=== PATIENT | female | born 1990 | race Caucasian/White ===

== ENCOUNTER 2020-07-27 09:07 | Emergency (ER) | payer OTHER, MEDICAID, SELFPAY ==
[2020-07-27] VITALS (9 sets, daily range): BP systolic 138–164; BP diastolic 75–95; PULSE 77–114; RESP 20; TEMP 36.7; O2SAT 94–100; BMI 20.2
[2020-07-27 09:50] LABS: Add Manual Diff / Slide Review NO; Basophils Absolute Auto 100 /uL (0-100); Basophils Percent Auto 1.1 % (0-2); Eosinophils Absolute Auto 200 /uL (0-450); Eosinophils Percent Auto 1.8 % (2-4); Hemoglobin 13.5 g/dL (12.0-16.0); Lymphocytes Absolute Auto 3300 /uL (1100-4500); Lymphocytes Percent Auto 32.4 % (25-40); Mean Corpuscular HGB Conc 33.7 % (30-36); Mean Corpuscular Hemoglobin 30.2 PG (26-34); Mean Corpuscular Volume 89.7 fL (80-100); Monocytes Absolute Auto 500 /uL (0-900); Neutrophils Absolute Auto 6100 /uL (1500-7000); Neutrophils Percent Auto 59.7 % (50-75); Platelet Count 283 X10^3/uL (150-400); Red Blood Cell Count 4.46 X10^6/uL (4.0-5.2); Red Cell Distribution Width 13.6 % (11.6-14.8); White Blood Cell Count 10.2 X10^3/uL (4.5-11.0)
--- NOTE | 2020-07-27 09:56 | ED.ABDPAIN ---
HPI - Abdominal Pain General Chief Complaint: Abdominal Pain Stated Complaint: Sharp pain in stomach and back Time Seen by Provider: 07/27/20 09:35 Source: patient Mode of arrival: Ambulatory Limitations: no limitations History of Present Illness HPI narrative: The patient complains of left lateral and left lower quadrant pain for about the last week. Pain has been significantly more severe since last night. She has no associated fever. She has no nausea vomiting. She describes normal appetite and normal bowel movements. She has dysuria hematuria. She has a history of ovarian cyst. She has no vaginal discharge. Her LMP was last month, she does not suspect herself of being . She has no associated back pain. She had no URI symptoms, headache, sore throat, or cough. She has no fever or chills. Related Data Previous Rx's Medication Instructions Recorded ciprofloxacin HCl 500 mg PO BID 7 Days #14 tab 07/27/20 metronidazole [Flagyl] 500 mg PO BID 7 Days #14 tab 07/27/20 tramadol 50 mg PO Q6-8H PRN #10 tab 07/27/20 Allergies Allergy/AdvReac Type Severity Reaction Status Date / Time Penicillins Allergy Severe Anaphylaxis Verified 07/27/20 09:20 Review of Systems Review of Systems ROS Unobtainable: All systems reviewed & are unremarkable except as noted in HPI and below Constitutional Constitutional: Denies chills, Denies fever(s), Denies lethargy and Denies weakness ENT Ears, Nose, Mouth, and Throat: Denies dizziness, Denies neck pain, Denies sore throat and Denies throat swelling Cardiovascular Cardiovascular: Denies chest pain, Denies dyspnea and Denies orthopnea Respiratory Respiratory: Denies cough, Denies dyspnea and Denies wheezing Gastrointestinal Gastrointestinal: Reports abdominal pain (LLQ), Denies change in bowel habits, Denies diarrhea, Denies nausea and Denies vomiting Genitourinary Genitourinary: Denies dysuria Genitourinary: Denies dysuria Musculoskeletal Musculoskeletal: Denies back pain, Denies myalgias and Denies neck pain Integumentary/Breasts Skin/Breast: Denies pruritus, Denies erythema, Denies rash and Denies wounds Neurologic Neurologic: Denies confusion, Denies dizziness and Denies weakness Psychiatric Psychiatric: Denies confusion Hematologic/Lymphatic Hematologic/Lymphatic: Denies easy bruising Allergic/Immunologic Allergic/Immunologic: Denies throat swelling and Denies wheezing Patient History Medical History (Updated 07/27/20 @ 14:52 by Palomo Yanes MD) No active medical problems (Acute) Surgical History (Updated 07/27/20 @ 14:59 by Lauri Giang) No history of previous surgery (Acute) Social History Smoking Status: Current every day smoker Smoking Status: Current every day smoker tobacco type: cigarettes alcohol intake frequency: other Substance Use Type: marijuana Exam Initial Vital Signs Initial Vital Signs: Vital Signs Temperature 98.0 F 07/27/20 09:14 Pulse Rate 114 H 07/27/20 09:14 Respiratory Rate 20 07/27/20 09:14 Blood Pressure 149/81 H 07/27/20 09:14 Pulse Oximetry 100 07/27/20 09:14 Const General: cooperative and well developed Nutritional Appearance: well nourished HENMT Mouth: oral mucosae normal Throat: posterior oropharynx normal Eyes Other: No icterus Resp Effort & Inspection: normal respiratory effort and able to speak in complete sentences Auscultation: clear to auscultation bilaterally, no rales, no rhonchi and no wheezes Cardio Rate: regular rate Rhythm: regular rhythm Heart Sounds: S1 normal, S2 normal, no click, no gallops, no murmurs and no rubs Pulses: normal peripheral pulses GI Other: Tenderness in the LLQ with guarding but no rebound. No distention. No masses. Normal bowel sounds. Back/Spine/Pelvis Back: No CVA tenderness Skin General: no rashes or lesions noted, No jaundice and No petechiae Neuro General: patient alert, patient oriented x3, gait normal and no focal motor deficits Speech: speech normal Extrem General: full ROM, no clubbing, cyanosis or edema, no pedal edema and no calf tenderness Psych Appearance: grossly normal Mental Status: mental status grossly normal Course Course Course Narrative: The patient's CT revealed suspicion for an enteritis, but also raise suspicion of ovarian disease. A pelvic ultrasound revealed normal pelvic organs. There is normal blood flow to both ovaries. She was started on antibiotics prior to discharge, Cipro and Flagyl. She has appoint with her doctor September. If symptoms persist she may require colonoscopy. In the meantime, if symptoms escalate she should return the ER. Orders Ordered: ED Orders 07/27/20 09:40 Complete Blood Count AUTO DIFF Stat Comprehensive Metabolic Panel Stat Lipase Stat Partial Thromboplastin Time Stat Prothrombin Time INR Stat 07/27/20 10:23 Urine Microscopic Stat 07/27/20 10:45 CT abdomen pelvis w con Stat 07/27/20 12:50 US pelvic complete Stat Discontinued Medications Hydromorphone HCl (Dilaudid) 1 mg IV NOW ONE Stop: 07/27/20 12:51 Last Admin: 07/27/20 13:01 Dose: 1 mg Documented by: ANDREI Sodium Chloride (Normal Saline 0.9%) 500 mls @ 1,000 mls/hr IV BOLUS ONE Stop: 07/27/20 10:24 Last Infusion: 07/27/20 11:38 Dose: 0 mls/hr Documented by: Admin: 07/27/20 10:21 Dose: 1,000 mls/hr Documented by: VANCE Ketorolac Tromethamine (Toradol) 30 mg IV NOW ONE Stop: 07/27/20 09:56 Last Admin: 07/27/20 10:20 Dose: 30 mg Documented by: VANCE Levofloxacin (Levaquin) 500 mg PO NOW ONE Stop: 07/27/20 14:42 Last Admin: 07/27/20 14:54 Dose: 500 mg Documented by: ANDREI Metronidazole (Metronidazole) 500 mg PO NOW ONE Stop: 07/27/20 14:42 Last Admin: 07/27/20 14:53 Dose: 500 mg Documented by: ANDREI Vital Signs Vital signs: Vital Signs - 8 hr 07/27/20 09:14 07/27/20 10:19 07/27/20 12:45 Temperature 98.0 F Pulse Rate 114 H 82 92 H Respiratory Rate 20 Blood Pressure 149/81 H 149/86 H 152/94 H Pulse Oximetry 100 94 100 07/27/20 13:00 07/27/20 13:30 07/27/20 13:31 Temperature Pulse Rate 102 H 90 Respiratory Rate Blood Pressure 140/75 164/95 H Pulse Oximetry 100 94 100 07/27/20 14:00 07/27/20 14:30 07/27/20 14:54 Temperature Pulse Rate 82 77 91 H Respiratory Rate Blood Pressure 140/83 140/91 H 138/85 Pulse Oximetry 100 100 95 MDM - Abdominal Pain Lab Data Result diagrams: 07/27/20 09:40 07/27/20 09:40 Labs: Lab Results 07/27/20 07/27/20 07/27/20 Range/Units 09:40 09:40 09:40 WBC 10.2 (4.5-11.0) X10^3/uL RBC 4.46 (4.0-5.2) X10^6/uL Hgb 13.5 (12.0-16.0) g/dL Hct 40.0 (36-46) % MCV 89.7 (80-100) fL MCH 30.2 (26-34) PG MCHC 33.7 (30-36) % RDW 13.6 (11.6-14.8) % Plt Count 283 (150-400) X10^3/uL Neut % (Auto) 59.7 (50-75) % Lymph % (Auto) 32.4 (25-40) % [place] % (Auto) 5.0 (3-14) % Eos % (Auto) 1.8 L (2-4) % Baso % (Auto) 1.1 (0-2) % Neut # (Auto) 6100 (6515-9313) /uL Lymph # (Auto) 3300 (4115-8181) /uL [place] # (Auto) 500 (0-900) /uL Eos # (Auto) 200 (0-450) /uL Baso # (Auto) 100 (0-100) /uL PT 11.3 (10.1-12.7) SECONDS INR 1.0 (0.9-1.3) APTT 32 (26.4-36.2) SECONDS Sodium 138 (137-145) mmol/L Potassium 3.8 (3.4-5.1) mmol/L Chloride 106 (98-107) mmol/L Carbon Dioxide 25 (22-32) mmol/L BUN 15 (7-17) mg/dL Creatinine 0.65 (0.52-1.04) mg/dL Estimated GFR > 60.0 (>60) mL/min BUN/Creatinine Ratio 23.1 H (6-22) Glucose 101 H (70-100) mg/dL Calcium 8.9 (8.4-10.2) mg/dL Total Bilirubin 0.3 (0.2-1.3) mg/dL AST 23 (14-36) IU/L ALT 27 (<35) IU/L Alkaline Phosphatase 62 (38-126) U/L Total Protein 6.7 (6.3-8.2) g/dL Albumin 4.0 (3.5-5.0) g/dL Globulin 2.7 (1.7-4.1) g/dL Albumin/Globulin Ratio 1.5 (1.0-2.8) Lipase 74 (23-300) U/L Urine RBC (0-5/HPF) Urine WBC (0-5/HPF) Ur Squamous Epith Cells (0-5/HPF) Urine Bacteria (None) Ur Culture Indicated? 07/27/20 Range/Units 10:23 WBC (4.5-11.0) X10^3/uL RBC (4.0-5.2) X10^6/uL Hgb (12.0-16.0) g/dL Hct (36-46) % MCV (80-100) fL MCH (26-34) PG MCHC (30-36) % RDW (11.6-14.8) % Plt Count (150-400) X10^3/uL Neut % (Auto) (50-75) % Lymph % (Auto) (25-40) % [place] % (Auto) (3-14) % Eos % (Auto) (2-4) % Baso % (Auto) (0-2) % Neut # (Auto) (2424-2738) /uL Lymph # (Auto) (2065-4604) /uL [place] # (Auto) (0-900) /uL Eos # (Auto) (0-450) /uL Baso # (Auto) (0-100) /uL PT (10.1-12.7) SECONDS INR (0.9-1.3) APTT (26.4-36.2) SECONDS Sodium (137-145) mmol/L Potassium (3.4-5.1) mmol/L Chloride (98-107) mmol/L Carbon Dioxide (22-32) mmol/L BUN (7-17) mg/dL Creatinine (0.52-1.04) mg/dL Estimated GFR (>60) mL/min BUN/Creatinine Ratio (6-22) Glucose (70-100) mg/dL Calcium (8.4-10.2) mg/dL Total Bilirubin (0.2-1.3) mg/dL AST (14-36) IU/L ALT (<35) IU/L Alkaline Phosphatase (38-126) U/L Total Protein (6.3-8.2) g/dL Albumin (3.5-5.0) g/dL Globulin (1.7-4.1) g/dL Albumin/Globulin Ratio (1.0-2.8) Lipase (23-300) U/L Urine RBC 0-1/hpf (0-5/HPF) Urine WBC 0-1/hpf (0-5/HPF) Ur Squamous Epith Cells None seen (0-5/HPF) Urine Bacteria None seen (None) Ur Culture Indicated? Cult not indicated Point of care testing: Point of Care Testing Test Results Negative Urine Dip Bedside Urine Glucose Negative Bedside Urine Bilirubin - Negative Bedside Urine Ketone - Negative Urine Specific [place] 1.015 Bedside Urine Occult Blood - Negative Bedside Urine pH 7.0 Bedside Urine Protein - Negative Bedside Urine Urobilinogen - Negative Bedside Urine Nitrite - Negative Bedside Urine Leukocytes +/- [address] scan - abdomen/pelvis: Radiologist's Impression: 118 Palomo Yanes MD Find Patient Imaging - Lora José 29 F 1990 ACTIVITY DATE EXAM STATUS AUTHOR 07/27/20 10:45 Signed Call,[place] [phone] CT Scan Report Signed Patient: Lora José DMR#: [id number] : 1990Acct:[id number] Age/Sex: 29 / FDate of Service: 07/27/20 Loc: ED Accession Number: [id number] Procedure: CT abdomen pelvis w con Ordering Provider: Palomo Yanes MD PROCEDURE: CT ABDOMEN PELVIS W CON INDICATIONS: Left lower quadrant pain TECHNIQUE: After the administration of oral and intravenous contrast, 5 mm thick sections acquired from the diaphragms to the symphysis. 5 mm thick coronal and sagittal reformats were performed. For radiation dose reduction, the following was used: automated exposure control, adjustment of mA and/or kV according to patient size. COMPARISON: None. FINDINGS: Image quality: Excellent. ABDOMEN: Lung bases: Lung bases are clear. Heart size is normal. Solid organs: Liver is normal in size and enhancement. Gallbladder is contracted. Biliary system is non-dilated. Pancreas enhances normally. Spleen is normal in size and enhancement. No adrenal nodules. Kidneys are normal in size and enhancement, without hydronephrosis. Peritoneum and bowel: Stomach is distended. No small bowel obstruction. Matted appearance of the small bowel in the left abdomen. Question of areas of small bowel wall thickening. No diverticulosis or diverticulitis. Normal caliber of the appendix. No free fluid or air. Nodes and vessels: No retroperitoneal or mesenteric adenopathy. Aorta and inferior vena cava are normal in caliber. Miscellaneous: No ventral hernias. PELVIS: Genitourinary: Bladder wall thickness is normal. Prior tubal ligation. Left corpus luteum or crenulated cyst measuring 1.2 cm, (2/64). Possible additional left ovarian cyst versus free fluid. Miscellaneous: No inguinal hernias or adenopathy. Bones: No suspicious bony lesions. No vertebral body compression fractures. IMPRESSION: 1. Left ovarian crenulated cyst or corpus luteum. This could be a source of left pelvic pain. -if clinically indicated this could be further evaluated with pelvic ultrasound. 2. Matted appearance of the small bowel in the left abdomen with possible wall thickening. This could be due to enteritis. No small bowel obstruction. 3. No hydronephrosis. Dictated by: Pola Murphy M.D. on 07/27/2020 at 12:09 Approved by: Pola Murphy M.D. on 07/27/2020 at 12:16 US Pelvis: Radiologist's Impression: [place] [address] Ultrasound Report Signed Patient: Lora José [facility]#: [id number] : 1990Acct:[id number] Age/Sex: 29 / FDate of Service: 07/27/20 Loc: ED Accession Number: [id number] Procedure: US pelvic complete Ordering Provider: Palomo Yanes MD PROCEDURE: US PELVIC COMPLETE INDICATIONS: LLQ pain TECHNIQUE: Real-time scanning was performed of the pelvic organs, with image documentation. Additional endovaginal scanning was necessary due to incomplete visualization of the adnexal and endometrial structures by transabdominal scanning. COMPARISON: None. FINDINGS: Transabdominal scanning: Limited scanning through the kidneys shows no hydronephrosis. No pathologic free abdominal or pelvic fluid. Endovaginal scanning: Uterus: Uterus is normal in size at 9.2 x 4.3 x 6.5 cm. The endometrium measures 10 mm in combined thickness. Ovaries: The right ovary measures 2.6 x 1.7 x 3.2 cm. The left ovary measures 3.3 x 2.6 x 2.6 cm. The ovaries have a normal sonographic appearance. No adnexal masses are seen. Normal appearing arterial waveforms are confirmed to each ovary. IMPRESSION: Normal pelvic ultrasound, without an imaging explanation found for the patient's presenting history of left lower quadrant pain. Dictated by: Jean-Pierre Amaya M.D. on 07/27/2020 at 13:26 Approved by: Jean-Pierre Amaya M.D. on 07/27/2020 at 13:27 Discharge Plan Departure Patient Disposition: Home Clinical Impression: Colitis, No history of previous surgery Discharge Date/Time: 07/27/20 14:59 Instructions: DI for Colitis Activity Restrictions/Additional Instructions: Cipro 500 mg 2 times daily for 1 week. Flagyl 500 mg 2 times daily for 1 week. Advil 3 tablets every 6 hours as needed for pain. Tramadol every 6 hours as needed for added pain control. Follow-up with your doctor for re-evaluation. If symptoms persist or return you may initially need further evaluation of your colon. If you have increasing pain or fever return to the ER. Prescriptions: New tramadol 50 mg tablet 50 mg PO Q6-8H PRN (Reason: pain) Qty: 10 RF: 0 ciprofloxacin HCl 500 mg tablet 500 mg PO BID 7 Days Qty: 14 RF: 0 metronidazole [Flagyl] 500 mg tablet 500 mg PO BID 7 Days Qty: 14 RF: 0
[2020-07-27 09:57] LABS: Prothrombin Time 11.3 SECONDS (10.1-12.7)
[2020-07-27 10:00] LABS: PTT Partial Thromboplastin Tim 32 SECONDS (26.4-36.2)
[2020-07-27 10:03] LABS: Alanine Aminotransferase 27 IU/L (<35); Albumin Globulin Ratio 1.5 (1.0-2.8); Alkaline Phosphatase 62 U/L (38-126); Aspartate Aminotransferase 23 IU/L (14-36); BUN Creatinine Ratio 23.1 (6-22); Bilirubin Total 0.3 mg/dL (0.2-1.3); Blood Urea Nitrogen 15 mg/dL (7-17); Calcium 8.9 mg/dL (8.4-10.2); Carbon Dioxide 25 mmol/L (22-32); Chloride 106 mmol/L (98-107); Estimated Glomerular Filt Rate > 60.0 mL/min (>60); Globulin 2.7 g/dL (1.7-4.1); Glucose 101 mg/dL (70-100); HEMOLYSIS < 15 (0-50); Lipase 74 U/L (23-300); Potassium 3.8 mmol/L (3.4-5.1); Sodium 138 mmol/L (137-145); Total Protein 6.7 g/dL (6.3-8.2)
[2020-07-27] MEDS: KETOROLAC 60 MG/2 ML VIAL 30 MG IV (10:20)
[2020-07-27] MEDS: SODIUM CHLORIDE 0.9% 500 ML 1000 ML IV (10:21)
--- NOTE | 2020-07-27 10:45 | DI.CT.S_ITS ---
PROCEDURE: CT ABDOMEN PELVIS W CON INDICATIONS: Left lower quadrant pain TECHNIQUE: After the administration of oral and intravenous contrast, 5 mm thick sections acquired from the diaphragms to the symphysis. 5 mm thick coronal and sagittal reformats were performed. For radiation dose reduction, the following was used: automated exposure control, adjustment of mA and/or kV according to patient size. COMPARISON: None. FINDINGS: Image quality: Excellent. ABDOMEN: Lung bases: Lung bases are clear. Heart size is normal. Solid organs: Liver is normal in size and enhancement. Gallbladder is contracted. Biliary system is non-dilated. Pancreas enhances normally. Spleen is normal in size and enhancement. No adrenal nodules. Kidneys are normal in size and enhancement, without hydronephrosis. Peritoneum and bowel: Stomach is distended. No small bowel obstruction. Matted appearance of the small bowel in the left abdomen. Question of areas of small bowel wall thickening. No diverticulosis or diverticulitis. Normal caliber of the appendix. No free fluid or air. Nodes and vessels: No retroperitoneal or mesenteric adenopathy. Aorta and inferior vena cava are normal in caliber. Miscellaneous: No ventral hernias. PELVIS: Genitourinary: Bladder wall thickness is normal. Prior tubal ligation. Left corpus luteum or crenulated cyst measuring 1.2 cm, (2/64). Possible additional left ovarian cyst versus free fluid. Miscellaneous: No inguinal hernias or adenopathy. Bones: No suspicious bony lesions. No vertebral body compression fractures. IMPRESSION: 1. Left ovarian crenulated cyst or corpus luteum. This could be a source of left pelvic pain. -if clinically indicated this could be further evaluated with pelvic ultrasound. 2. Matted appearance of the small bowel in the left abdomen with possible wall thickening. This could be due to enteritis. No small bowel obstruction. 3. No hydronephrosis. Dictated by: Pola Murphy M.D. on 07/27/2020 at 12:09 Approved by: Pola Murphy M.D. on 07/27/2020 at 12:16
--- NOTE | 2020-07-27 12:50 | DI.US.S_ITS ---
PROCEDURE: US PELVIC COMPLETE INDICATIONS: LLQ pain TECHNIQUE: Real-time scanning was performed of the pelvic organs, with image documentation. Additional endovaginal scanning was necessary due to incomplete visualization of the adnexal and endometrial structures by transabdominal scanning. COMPARISON: None. FINDINGS: Transabdominal scanning: Limited scanning through the kidneys shows no hydronephrosis. No pathologic free abdominal or pelvic fluid. Endovaginal scanning: Uterus: Uterus is normal in size at 9.2 x 4.3 x 6.5 cm. The endometrium measures 10 mm in combined thickness. Ovaries: The right ovary measures 2.6 x 1.7 x 3.2 cm. The left ovary measures 3.3 x 2.6 x 2.6 cm. The ovaries have a normal sonographic appearance. No adnexal masses are seen. Normal appearing arterial waveforms are confirmed to each ovary. IMPRESSION: Normal pelvic ultrasound, without an imaging explanation found for the patient's presenting history of left lower quadrant pain. Dictated by: Jean-Pierre Amaya M.D. on 07/27/2020 at 13:26 Approved by: Jean-Pierre Amaya M.D. on 07/27/2020 at 13:27
[2020-07-27] MEDS: HYDROMORPHONE 1 MG INJ IV (13:01)
[2020-07-27 13:32] LABS: Bacteria Urine None Seen
[2020-07-27 13:40] LABS: Culture Indicated Urine Cult Not Indicated; RBC Urine 0-1/HPF (0-5/HPF); Squamous Epithelial Cell Urine None Seen (0-5/HPF); WBC Urine 0-1/HPF (0-5/HPF)
[2020-07-27] MEDS: metroNIDAZOLE 250 MG TABLET 500 MG PO (14:53)
[2020-07-27] MEDS: levoFLOXacin 250 MG TABLET 500 MG PO (14:54)
== END 2020-07-27 14:59 | disposition home or self-care (01) ==
PROVIDERS: Emergency Provider Emergency Medicine
DX: K52.9 Noninfective gastroenteritis and colitis, unspecified (principal); R30.0 Dysuria
CPT/HCPCS: 36415; 74177; 76830; 76856; 80053; 81003; 81015; 81025; 83690; 85025; 85610; 85730; 96361; 96374; 96375; 99284; 99285; J1170; J1885; Q9967

== ENCOUNTER 2021-11-05 02:56 | Emergency (ER) | payer OTHER, MEDICAID, SELFPAY ==
[2021-11-05 03:05] VITALS: BP 134/84; PULSE 110; RESP 18; TEMP 36.3; O2SAT 98
--- NOTE | 2021-11-05 03:07 | ED.GENADULT ---
HPI - General Adult General Chief complaint: Headache Stated complaint: neck/shoulder pain x1 night Time Seen by Provider: 11/05/21 03:01 Source: patient Mode of arrival: Ambulatory History of Present Illness HPI narrative: Patient is a 30-year-old female. Approximately 3 days ago underwent a submental lymph node biopsy. She states this was done at an outside facility. It was done for evaluation of potential lymphoma. Was performed by your nose and throat. She has a follow-up with these providers scheduled within the next week. She is here because she started to develop neck pain and head pain and shoulder pain and pain over the incision site yesterday. No fevers. She states that it does hurt somewhat open her mouth. Related Data Previous Rx's Medication Instructions Recorded tramadol 50 mg tablet 50 mg PO Q6-8H PRN #10 tab 07/27/20 Allergies Allergy/AdvReac Type Severity Reaction Status Date / Time Penicillins Allergy Severe Anaphylaxis Verified 07/27/20 09:20 Review of Systems Constitutional Constitutional: Denies fever(s) ENT Ears, Nose, Mouth, and Throat: Reports system reviewed and no additional complaints, except as documented and Reports as per HPI Cardiovascular Cardiovascular: Reports system reviewed and no additional complaints, except as documented Respiratory Respiratory: Reports system reviewed and no additional complaints, except as documented Musculoskeletal Musculoskeletal: Reports system reviewed and no additional complaints, except as documented Integumentary/Breasts Skin/Breast: Reports system reviewed and no additional complaints, except as documented Hematologic/Lymphatic On Anticoagulants: No Patient History Medical History No active medical problems Surgical History (Updated 07/27/20 @ 14:59 by Lauri Giang) No history of previous surgery Social History Smoking Status: Current every day smoker Smoking Status: Current every day smoker tobacco type: cigarettes alcohol intake frequency: other Substance Use Type: marijuana Exam Initial Vital Signs Initial Vital Signs: Vital Signs Temperature 97.4 F L 11/05/21 03:05 Pulse Rate 110 H 11/05/21 03:05 Respiratory Rate 18 11/05/21 03:05 Blood Pressure 134/84 11/05/21 03:05 Pulse Oximetry 98 11/05/21 03:05 HENMT Head: normal to inspection and normocephalic Ears: TM's normal bilaterally Mouth: oral mucosae normal Teeth and gingiva: dentition normal Neck Other: Patient has incision site with stitches and placed located on her chin. There is no surrounding erythema. No drainage. Minimal swelling. Resp Effort & Inspection: normal respiratory effort Cardio Rate: tachycardic Skin Other: Incision site looks well. Extrem Other: Does report tenderness to palpation of bilateral shoulders Course Orders Ordered: Discontinued Medications Bacitracin (Bacitracin Oint 0.9 Gm Pckt) 1 applic TOP NOW ONE Stop: 11/05/21 03:17 Last Admin: 11/05/21 03:20 Dose: 1 applic Documented by: Vital Signs Vital signs: Vital Signs - 8 hr 11/05/21 03:05 Temperature 97.4 F L Pulse Rate 110 H Respiratory Rate 18 Blood Pressure 134/84 Pulse Oximetry 98 Medical Decision Making MDM Narrative Medical decision making narrative: Patient's incision site looks well. There is no signs of any infection today. No signs of dehiscence. The stitches are in place. There is minimal swelling around the area. Patient is tachycardic but otherwise nontoxic appearing. I have low suspicion for infection given her presentation today and also the time frame in which the procedure was performed. I feel that we can hold on blood work for now. No indication for radiologic studies. Provided reassurance to the patient. Will have her continue to follow the postoperative instructions given to her by the surgeons. She was given return precautions. She expressed understanding and agreement. Discharge Plan Departure Patient Disposition: Home Clinical Impression: Postoperative pain Instructions: DI for Postoperative Pain Activity Restrictions/Additional Instructions: The incision site appears well. Today I have a low suspicion for an infection however if you developed more redness and more discomfort and drainage over the next 24-36 hours you do need to be re-evaluated. Continue all of the postoperative instructions given to you by the surgeon keep your scheduled follow-up appointment. You can continue to put topical antibiotic ointment over the area. You can purchase this [id number]. Prescriptions: No Action tramadol 50 mg tablet 50 mg PO Q6-8H PRN (Reason: pain) Qty: 10 0RF
[2021-11-05] MEDS: BACITRACIN OINT 0.9 GM PCKT 1 APPLIC TOP (03:20)
== END 2021-11-05 03:25 | disposition home or self-care (01) ==
PROVIDERS: Emergency Provider Emergency Medicine
DX: G89.18 Other acute postprocedural pain (principal); F17.210 Nicotine dependence, cigarettes, uncomplicated
CPT/HCPCS: 99282

== ENCOUNTER 2022-10-31 00:45 | Emergency (ER) | payer OTHER, MEDICAID, SELFPAY ==
[2022-10-31 00:53] VITALS: BP 148/99; PULSE 100; RESP 18; TEMP 36.4; O2SAT 100; BMI 25.1
== END 2022-10-31 03:00 | disposition left against medical advice (07) ==
PROVIDERS: Emergency Provider Emergency Medicine
DX: H92.01 Otalgia, right ear (principal)
CPT/HCPCS: 99281